=== PATIENT | female | born 1935 | race Caucasian/White ===

== ENCOUNTER 2020-08-03 21:07 | Inpatient (IN) | payer MEDICARE ==
[~2020-08-03] VITALS: Ht 175.3 cm; Wt 109.8 kg
[2020-08-04] MEDS ORDERED: LOPRESSOR 25 MG25 MG PO (00:49)
[2020-08-04] MEDS ORDERED: ZYLOPRIM 100 M100 MG PO (00:50)
[2020-08-04] MEDS ORDERED: TRIMETHOPRIM100 MG PO (00:51)
[2020-08-04] MEDS ORDERED: ZAROXOLYN/DIULO5 MG PO (00:52)
[2020-08-04] MEDS ORDERED: GABAPENTIN300 MG PO (00:52)
[2020-08-04] MEDS ORDERED: AMITRIPTYLINE H10 MG PO (00:53)
[2020-08-04] MEDS ORDERED: HYDROCODON-ACE1 EAC6 PO (00:54)
[2020-08-04] MEDS ORDERED: LASIX 40 MG TAB40 MG PO (00:54)
[2020-08-04] MEDS ORDERED: CLONAZEPAM1 MG PO (00:55)
[2020-08-04] MEDS ORDERED: FEROSUL325 MG PO (00:55)
[2020-08-04] MEDS ORDERED: ABILIFY2 MG PO (00:56)
[2020-08-04] MEDS ORDERED: DEXAMETHASONE 44 MG PO (01:36)
--- NOTE | 2020-08-04 02:53 | NUR ---
INFORMED JOZEF IN PHARMACY THAT PATIENT RECEIVED 50MG VANCO AT 1900
--- NOTE | 2020-08-04 03:25 | NUR ---
PLACED HOME MEDICATION IN PATIENT'S OVERNIGHT BAG, INSTRUCTED HER THAT MD DID NOT ORDER FOR HER TO TAKE HERE AND TO NOT TAKE
[2020-08-04 03:54] LABS: HEMOGLOBIN 13.4 gm/dl (12.3-15.3); RED BLOOD COUNT 4.64 M/UL (4.00-5.10); WHITE BLOOD COUNT 19.2 K/UL (4.5-11.0)
--- NOTE | 2020-08-05 01:20 | NUR ---
REPORT GIVEN TO AMY VINCENT AT 225. PATIENT HAS RESTED WELL IN BED 7PM-225, NO DISTRESS NOTED. DRESSING ON RIGHT KNEE CDI, CMS RIGHT LEG WNL, STABLE ON RA, VSS.
[2020-08-05 03:36] LABS: HEMOGLOBIN 12.2 gm/dl (12.3-15.3); RED BLOOD COUNT 4.08 M/UL (4.00-5.10); WHITE BLOOD COUNT 16.2 K/UL (4.5-11.0)
[2020-08-06 04:50] LABS: HEMOGLOBIN 12.4 gm/dl (12.3-15.3); RED BLOOD COUNT 4.19 M/UL (4.00-5.10); WHITE BLOOD COUNT 14.7 K/UL (4.5-11.0)
[2020-08-07 04:52] LABS: WHITE BLOOD COUNT 12.4 K/UL (4.5-11.0)
[2020-08-07 05:00] LABS: RED BLOOD COUNT 4.62 M/UL (4.00-5.10)
[2020-08-09 05:27] LABS: HEMOGLOBIN 13.3 gm/dl (12.3-15.3); RED BLOOD COUNT 4.34 M/UL (4.00-5.10); WHITE BLOOD COUNT 14.6 K/UL (4.5-11.0)
[2020-08-09] MEDS ORDERED: CLINDAMYCIN HC300 MG PO (10:39)
[2020-08-09] MEDS ORDERED: LIPITOR20 MG PO (11:42)
[2020-08-09] MEDS ORDERED: ASPIRIN EC81 MG PO (11:42)
--- NOTE | 2020-08-09 14:09 | NUR ---
REMOVED IV AND TAPE CAUSED SMALL SKIN TEAR TO PTS FOREARM. STERI-STRIPS APPLIED
== END 2020-08-09 14:40 | disposition home or self-care (01) | DRG 872 ==
LOC: M/S 08-04 00:11
PROVIDERS: Hospitalist; Internal Medicine; Physician Assistant Medical; ADMIT Internal Medicine
DX: A41.9 Sepsis, unspecified organism (principal); L03.115 Cellulitis of right lower limb; N17.9 Acute kidney failure, unspecified; I50.30 Unspecified diastolic (congestive) heart failure; I13.0 Hypertensive heart and chronic kidney disease with heart failure and stage 1 through stage 4 chronic kidney disease, or unspecified chronic kidney disease; R65.20 Severe sepsis without septic shock; N18.30 Chronic kidney disease, stage 3 unspecified; G20 Parkinson's disease; M10.9 Gout, unspecified; G62.9 Polyneuropathy, unspecified; I87.8 Other specified disorders of veins; M79.7 Fibromyalgia; R60.0 Localized edema; E78.5 Hyperlipidemia, unspecified; G24.4 Idiopathic orofacial dystonia; J30.9 Allergic rhinitis, unspecified; F41.9 Anxiety disorder, unspecified; Z96.651 Presence of right artificial knee joint; I25.10 Atherosclerotic heart disease of native coronary artery without angina pectoris; G24.9 Dystonia, unspecified; D72.829 Elevated white blood cell count, unspecified; Z82.49 Family history of ischemic heart disease and other diseases of the circulatory system; Z80.9 Family history of malignant neoplasm, unspecified
CPT/HCPCS: 36415; 73610; 73702; 80048; 80202; 82962; 83036; 83735; 85025; 85027; 85652; 86140; 87040; 93971; 96372; 96374; 96375; 96376; 97110-GP-CQ; 97116-GP-CQ; 97161; G0378; G0379; J1650; J3370; J7070; Q9963; U0002

== ENCOUNTER 2020-10-06 15:05 | Emergency (ER) | payer MEDICARE ==
[~2020-10-06 15:05] MED LIST: ABILIFY2 MG PO; AMITRIPTYLINE H10 MG PO; ASPIRIN EC81 MG PO; CLINDAMYCIN HC300 MG PO; CLONAZEPAM1 MG PO; DEXAMETHASONE 44 MG PO; FEROSUL325 MG PO; GABAPENTIN300 MG PO; HYDROCODON-ACE1 EAC6 PO; LASIX 40 MG TAB40 MG PO; LIPITOR20 MG PO; LOPRESSOR 25 MG25 MG PO; TRIMETHOPRIM100 MG PO; ZAROXOLYN/DIULO5 MG PO; ZYLOPRIM 100 M100 MG PO
== END 2020-10-06 17:10 | disposition left against medical advice (07) ==
LOC: ER1 15:05
DX: Z53.21 Procedure and treatment not carried out due to patient leaving prior to being seen by health care provider (principal)